=== PATIENT | female | born 1960 | race Caucasian/White ===

== ENCOUNTER 2020-10-16 15:11 | Observation (INO) ==
[2020-10-16] MEDS ORDERED: MORPHINE 4 MG/1 ML VIAL IV STA ×3 (17:37→19:41)
[2020-10-16] MEDS ORDERED: ONDANSETRON 4 MG/2 ML VIAL IV STA (17:37)
[2020-10-16] MEDS ORDERED: MORPHINE 2 MG/1 ML SYRINGE ONE (18:21)
[2020-10-16] MEDS ORDERED: MAGNESIUM HYDROXIDE SUSP 30 ML UDCUP PO PRN (18:44)
[2020-10-16] MEDS ORDERED: HYDROmorphone 2 MG/1 ML VIAL IV PRN (18:44)
[2020-10-16] MEDS ORDERED: ceFAZolin 2,000 MG/50 ML DUPLEX IV ONE (18:44)
[2020-10-16 18:54] LABS: Albumin 3.7 G/DL (3.4-5.0); Bilirubin,Total 0.7 MG/DL (0.2-1.0); Calcium 8.5 MG/DL (8.5-10.1); Osmolality,Calculated 282.1 MOS/KG (273-304); Potassium 3.9 MMOL/L (3.5-5.1)
[2020-10-16 18:57] LABS: Bilirubin,Urine Negative (Negative); Blood, Urine Negative (Negative); Glucose,Urine (UA) Negative (Negative); Ketones,Urine Negative (Negative); Mucus,Urine Occasional /LPF (Occasional); Nitrite,Urine Negative (Negative); Protein,Urine Negative; RBC,Urine <1 /HPF (0-4); Squamous Epithelial Cell,Urine Occasional /HPF (0-10); Urine Appearance CLEAR (Clear); Urine Color Yellow (Yellow); Urine Specific Gravity 1.023 (1.001-1.035)
[2020-10-16 19:27] LABS: Basophils # 0.1 10*3/uL (0.0-0.2); Basophils % 0.7 % (0.0-0.8); Eosinophils # 0.1 10*3/uL (0.0-0.87); Eosinophils % 0.8 % (0.00-10.9); Hemoglobin 13.3 GM/DL (12.0-16.0); Immature Granulocytes % 0.4 %; Immature Granulocytes Absolute 0.04 #; Lymphocytes # 1.1 10*3/uL (1.4-4.0); Mean Corpuscular HGB Conc 34.1 GM/DL (32-36); Mean Corpuscular Volume 92.2 FL (87-102); Mean Platelet Volume 11.2 FL (9.6-12.0); Neutrophils % 82.1 % (38.7-73.9); Platelet Count 195 T/CUMM (130-400); Red Blood Count 4.23 MC/CUMM (3.8-5.5); Red Cell Distribution Width 12.8 % (9.3-17.3); White Blood Count 9.1 T/CUMM (4-12)
[2020-10-16] MEDS: carvediloL 6.25 MG TABLET PO SCH (21:25)
[2020-10-17] MEDS: ONDANSETRON 4 MG/2 ML VIAL IV PRN ×2 (03:27→07:32)
[2020-10-17] MEDS ORDERED: ceFAZolin 2,000 MG/50 ML DUPLEX IV ONE (07:00)
[2020-10-17] MEDS ORDERED: lisinopriL 10 MG TABLET PO SCH (09:00)
[2020-10-17] MEDS: carvediloL 6.25 MG TABLET PO SCH ×2 (09:11→20:42)
[2020-10-17] MEDS ORDERED: DEXAMETHASONE 4 MG/1 ML VIAL ONE ×2 (09:43→10:57)
[2020-10-17] MEDS ORDERED: ROPIVACAINE 0.5% 30 ML VIAL ONE (09:43)
[2020-10-17] MEDS ORDERED: KETAMINE 500 MG/10 ML VIAL ONE (10:08)
[2020-10-17] MEDS ORDERED: DEXMEDETOMIDINE 200 MCG/2 ML VIAL ONE (10:08)
[2020-10-17] MEDS ORDERED: SCOPOLAMINE 1.5 MG PATCH TRANSDERM ONE (10:15)
[2020-10-17] MEDS ORDERED: SUCCINYLCHOLINE 200 MG/10 ML VIAL ONE (10:57)
[2020-10-17] MEDS ORDERED: ROCURONIUM 50 MG/5 ML VIAL IV ONE (10:57)
[2020-10-17] MEDS ORDERED: propofoL 200 MG/20 ML VIAL IV ONE (10:57)
[2020-10-17] MEDS ORDERED: ONDANSETRON 4 MG/2 ML VIAL ONE (10:57)
[2020-10-17] MEDS ORDERED: LACTATED RINGERS 1,000 ML IV SCH (11:00)
[2020-10-17] MEDS ORDERED: SODIUM CHLORIDE 0.9% 100 ML IV ONE (11:10)
[2020-10-17] MEDS ORDERED: ceFAZolin 1,000 MG VIAL ONE (11:48)
[2020-10-17] MEDS ORDERED: LACTATED RINGERS 1,000 ML IV ONE (12:02)
[2020-10-17] MEDS ORDERED: SEVOFLURANE 1 UNIT/15 MINUTE INH ONE (12:07)
[2020-10-17] MEDS ORDERED: MORPHINE 2 MG/1 ML SYRINGE IV PRN (12:10)
[2020-10-17] MEDS ORDERED: MAGNESIUM HYDROXIDE SUSP 30 ML UDCUP PO PRN (12:10)
[2020-10-17] MEDS ORDERED: diphenhydrAMINE CAP 25 MG CAPSULE PO PRN (12:10)
[2020-10-17] MEDS ORDERED: PROMETHAZINE 25 MG/1 ML VIAL IM PRN (12:10)
[2020-10-17] MEDS ORDERED: MORPHINE 10 MG/1 ML VIAL IV PRN (12:31)
[2020-10-17] MEDS ORDERED: ATORVASTATIN 10 MG TABLET PO SCH (21:00)
[2020-10-18] MEDS: carvediloL 6.25 MG TABLET PO SCH (08:37)
[2020-10-18] MEDS ORDERED: lisinopriL 20 MG TABLET PO SCH (09:00)
[2020-10-18 09:29] VITALS: BP 122/43
== END 2020-10-18 10:54 | disposition home or self-care (01) ==
LOC: N.EDINP 15:11 → N.ED 15:11 → N.3E 19:50
PROVIDERS: ADMIT Orthopaedic Surgery; ATTEND Orthopaedic Surgery